=== PATIENT | male | born 1940 | race Caucasian/White ===

== ENCOUNTER 2020-12-19 10:53 | Outpatient (CLI) | payer MEDICARE, OTHER, SELFPAY ==
--- NOTE | 2020-12-19 | DI.RAD_ITS ---
Exam(s) XR SHOULDER RT COMPLETE 2+V EXAM: XR SHOULDER RT COMPLETE 2+V CLINICAL HISTORY: RT SHOULDER PAIN, M25.511 TECHNIQUE: COMPARISON: No exams were available for comparison FINDINGS: Five views were obtained. There appears to be mild narrowing of the cartilaginous joint space of the glenohumeral joint. There are mild marginal osteophytes the humeral head and glenoid. Humeral head appears mildly subluxed superiorly which may represent rotator cuff tear or thinning superiorly. 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 No other bony or soft tissue abnormality seen IMPRESSION: RADIATION DOSE DELIVERED: Total DLP
== END 2020-12-19 11:13 ==
PROVIDERS: Visit Provider Nurse Practitioner Family
DX: M25.511 Pain in right shoulder (principal)
CPT/HCPCS: 73030